=== PATIENT | male | born 1940 | race Caucasian/White ===

== ENCOUNTER 2016-11-21 13:45 | Emergency (ER) | payer OTHER, MEDICARE, BC ==
[~2016-11-21] VITALS: Ht 160 cm; Wt 110.0 kg
[2016-11-21] MEDS ORDERED: IOHEXOL 350 MG/ML 10 ML VIAL (for RAD DIAG) IVCONTRAST ONE (13:46)
[2016-11-21 13:48] VITALS: BP 149/67; PULSE 76; RESP 19; TEMP 98; O2SAT 94
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
[2016-11-21 14:12] VITALS: BP 141/79; PULSE 71; RESP 19; O2SAT 95
[2016-11-21 14:22] VITALS: RESP 13; O2SAT 93
[2016-11-21] MEDS ORDERED: VERA1TAB17 PO (14:26)
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
[2016-11-21] MEDS ORDERED: CENTCHW4 CHEW (14:29)
[2016-11-21] MEDS ORDERED: ALPR0.5T3 PO (14:29)
[2016-11-21] MEDS ORDERED: ALFU10TA2 PO (14:29)
[2016-11-21] MEDS ORDERED: FISHCAP4 PO (14:29)
[2016-11-21] MEDS ORDERED: TRAM50TA PO ×2 (14:29→18:15)
[2016-11-21] MEDS ORDERED: SIMV10TA PO (14:29)
[2016-11-21] MEDS ORDERED: LEVO50TA4 PO (14:29)
[2016-11-21] MEDS ORDERED: PYRI25TA (14:29)
[2016-11-21] MEDS ORDERED: MAGN100T2 PO (14:29)
[2016-11-21] MEDS ORDERED: TRIA37.53 PO (14:29)
--- NOTE | 2016-11-21 15:03 | RADRPT ---
EXAM DATE/TIME: 11/21/2016 14:35 [facility] COMPARISON: No previous studies available for comparison. INDICATIONS : Chest pain, shortness of breath. MEDICAL HISTORY : Hypertension. Diabetes mellitus type II. Carcinoma, prostatic. SURGICAL HISTORY : None. ENCOUNTER: Initial ACUITY: 3 days PAIN SCORE: 8/10 LOCATION: chest midline. FINDINGS: A single view of the chest demonstrates lungs to be hypoinflated with bibasilar atelectatic changes, left greater than right. No effusion. Heart size is borderline probable compensated. Osseous structur es are intact. CONCLUSION: 1. Hypoinflation with bibasilar atelectatic changes, most prominent on the left. 2. Borderline prominent but well compensated heart. Dani Mistry MD on November 21, 2016 at 14:58 Board Certified Radiologist. This report was verified electronically.
[2016-11-21 15:08] LABS: AUTOMATED NEUTROPHIL # 5.1 TH/MM3 (1.8-7.7); BASOPHIL # 0.1 TH/MM3 (0-0.2); BASOPHIL % 0.9 % (0.0-2.0); EOSINOPHIL # 0.2 TH/MM3 (0-0.4); EOSINOPHIL % 2.3 % (0.0-4.0); HEMATOCRIT 38.6 % (39.0-51.0); HEMO FLAGS DIFF FINAL; LYMPH % 14.2 % (9.0-44.0); MEAN CELL VOLUME 97.2 FL (80.0-100.0); MEAN CORPUSCULAR HEMOGLOBIN 32.5 PG (27.0-34.0); MEAN CORPUSCULAR HGB CONC 33.5 % (32.0-36.0); MONO % 8.3 % (0.0-8.0); NEUT % 74.3 % (16.0-70.0); PLATELET COUNT 207 TH/MM3 (150-450); RED BLOOD COUNT 3.97 MIL/MM3 (4.50-5.90); RED CELL DISTRIBUTION WIDTH 13.5 % (11.6-17.2); WHITE BLOOD COUNT 6.9 TH/MM3 (4.0-11.0)
[2016-11-21 15:13] LABS: APTT (PATIENT) 27.7 SEC (24.3-30.1); INTERNATIONAL NORMALIZED RATIO 0.9 RATIO; PROTHROMBIN TIME - PATIENT 10.3 SEC (9.8-11.6)
[2016-11-21 15:38] LABS: BICARBONATE 26.9 MEQ/L (21.0-32.0); POTASSIUM 3.5 MEQ/L (3.5-5.1)
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
[2016-11-21] MEDS ORDERED: FURO1TAB62 PO (18:15)
--- NOTE | 2016-11-22 14:57 | EKG ---
Date Performed: 11/21/2016 Time Performed: 14:57:15 PTAGE: 76 years EKG: Sinus rhythm WITH FIRST DEGREE AV BLOCK RIGHT BUNDLE BRANCH BLOCK ABNORMAL ECG NO PREVIOUS TRACING DOCTOR: Anatoly Falcon Interpretating Date/Time 11/22/2016 14:56:38
== END 2016-11-21 19:05 | disposition home or self-care (01) ==
LOC: NEPE 13:45
DX: S20.219A Contusion of unspecified front wall of thorax, initial encounter (principal); R07.9 Chest pain, unspecified; R60.0 Localized edema; R06.02 Shortness of breath; R94.31 Abnormal electrocardiogram [ECG] [EKG]; V89.2XXA Person injured in unspecified motor-vehicle accident, traffic, initial encounter
CPT/HCPCS: 71010; 71260; 74177; 80048; 83880; 85025; 85610; 85730; 86850; 86900; 86901; 93005; 99285; Q9967